=== PATIENT | male | born 1995 | race Caucasian/White ===

== ENCOUNTER 2021-03-14 00:07 | Emergency (ER) | payer OTHER ==
[~2021-03-14] VITALS: Ht 177.8 cm; Wt 118.2 kg
[2021-03-14 00:12] VITALS: BP 138/78; Ht 177.8 cm; Wt 118.2 kg
[2021-03-14] MEDS ORDERED: NAPROSYN500 MG PO (00:44)
[2021-03-14] MEDS ORDERED: ULTRAM50 MG PO (00:44)
== END 2021-03-14 00:55 | disposition home or self-care (01) ==
LOC: D.ER 00:07
DX: S63.502A Unspecified sprain of left wrist, initial encounter (principal); X50.9XXA Other and unspecified overexertion or strenuous movements or postures, initial encounter; Y93.9 Activity, unspecified; Y92.9 Unspecified place or not applicable

== ENCOUNTER 2021-03-25 18:28 | Emergency (ER) | payer OTHER ==
[~2021-03-25] VITALS: Ht 177.8 cm; Wt 121.8 kg
[~2021-03-25 18:28] MED LIST: NAPROSYN500 MG PO; ULTRAM50 MG PO
[2021-03-25 18:30] VITALS: Ht 177.8 cm; Wt 121.8 kg
[2021-03-25] MEDS ORDERED: PREDNISONE50 MG PO (19:11)
[2021-03-25 20:00] VITALS: BP 134/61
== END 2021-03-25 19:28 | disposition home or self-care (01) ==
LOC: D.ER 18:28
DX: S66.912D Strain of unspecified muscle, fascia and tendon at wrist and hand level, left hand, subsequent encounter (principal); S66.911D Strain of unspecified muscle, fascia and tendon at wrist and hand level, right hand, subsequent encounter; X50.9XXD Other and unspecified overexertion or strenuous movements or postures, subsequent encounter